=== PATIENT | female | born 1995 | race Caucasian/White ===

== ENCOUNTER 2018-12-29 06:00 | Emergency (ER) | payer SELFPAY ==
[~2018-12-29] VITALS: Ht 165.1 cm; Wt 56.1 kg
[2018-12-29 06:06] VITALS: BP 109/56; PULSE 89; RESP 18; Ht 165.1 cm; Wt 56.1 kg
[2018-12-29] MEDS ORDERED: CIPR500T4 PO (07:48)
--- NOTE | 2018-12-29 09:25 | ERD ---
ER Documentation Chief Complaint Chief Complaint DYSURIA, LOWER BACK PAIN X'S 2 DAYS HPI 23-year-old female presenting with dysuria times 2 days. Patient states she developed hematuria this morning. No fevers. She said her last UTI was last year. Has not use any medications for symptoms. Describes urinary frequency with burning. Patient has some mild suprapubic tenderness. Denies lateralized pain. LNMP 1 week ago. Denies medical problems. NKDA. Surgical history of C- section. Social history smokes 1 cigarette a day. ROS All systems reviewed and are negative except as per history of present illness. Medications Home Meds Active Scripts Ciprofloxacin Hcl* (Ciprofloxacin Hcl*) 500 Mg Tablet, 500 MG PO BID for 7 Days, TAB Prov:MEGAN ARTHUR PA-C 12/29/18 PMhx/Soc Medical and Surgical Hx: pt denies Medical Hx, pt denies Surgical Hx Hx Alcohol Use: No Hx Substance Use: No Hx Tobacco Use: Yes Smoking Status: Current some day smoker FmHx Family History: No diabetes, No coronary disease, No other Physical Exam Vitals Vital Signs Date Temp Pulse Resp B/P (MAP) Pulse Ox O2 O2 Flow FiO2 Time Delivery Rate 12/29/18 97.0 89 18 109/56 100 06:06 (73) Physical Exam GENERAL: The patient is well-appearing, well-nourished, in no acute distress CHEST: Clear to auscultation bilaterally. There are no rales, wheezes or rhonchi. HEART: Regular rate and rhythm. No murmurs, clicks, rubs or gallops. ABDOMEN:Soft, nontender and nondistended. Good bowel sounds. No rebound or guarding. No gross peritonitis. No gross organomegaly or masses. Mild tenderness to palpation over the pubic region. BACK: No midline or flank tenderness. Results 24 hrs Laboratory Tests Test 12/29/18 07:36 12/29/18 07:37 Bedside Urine pH (LAB) 6.0 Bedside Urine Protein (LAB) 3+ Bedside Urine Glucose (UA) Negative Bedside Urine Ketones (LAB) Negative Bedside Urine Blood 3+ Bedside Urine Nitrite (LAB) Negative Bedside Urine Leukocyte Esterase (L 1+ POC Beta HCG, Qualitative NEGATIVE Procedures/MDM ER course: Urinalysis shows positive findings of urinary tract infection. MDM: 23-year-old female presenting with dysuria. I have low suspicion for pyelonephritis as patient's exam is non-concerning. I have low suspicion for pelvic emergency or acute abdominal emergency. Exam is non-concerning. Patient has findings consistent with urinary tract infection she will be discharged with supportive medications. Patient is told if symptoms change or worsen to return immediately to the ER. All questions answered at discharge Departure Diagnosis: Primary Impression: UTI (urinary tract infection) Condition: Stable Patient Instructions: Understanding Urinary Tract Infections (UTIs) Referrals: [facility] YOU HAVE RECEIVED A MEDICAL SCREENING EXAM AND THE RESULTS INDICATE THAT YOU DO NOT HAVE A CONDITION THAT REQUIRES URGENT TREATMENT IN THE EMERGENCY DEPARTMENT. FURTHER EVALUATION AND TREATMENT OF YOUR CONDITION CAN WAIT UNTIL YOU ARE SEEN IN YOUR DOCTORS OFFICE WITHIN THE NEXT 1-2 DAYS. IT IS YOUR RESPONSIBILITY TO MAKE AN APPOINTMENT FOR FOLOW-UP CARE. IF YOU HAVE A PRIMARY DOCTOR --you should call your primary doctor and schedule an appointment IF YOU DO NOT HAVE A PRIMARY DOCTOR YOU CAN CALL OUR PHYSICIAN REFERRAL HOTLINE AT IF YOU CAN NOT AFFORD TO SEE A PHYSICIAN YOU CAN CHOSE FROM THE FOLLOWING [facility] CLINICS [facility] [id number] [facility] [address] [facility] [facility] [address] [facility] [facility] [address] [facility] [address] [facility]. [address] Additional Instructions: FOLLOW UP WITH YOUR PRIMARY CARE PHYSICIAN TOMORROW.Return to this facility if you are not improving as expected. MEGAN ARTHUR PA-C Dec 29, 2018 09:25
== END 2018-12-29 08:36 | disposition home or self-care (01) ==
LOC: FTE 06:00
DX: N39.0 Urinary tract infection, site not specified (principal); F17.210 Nicotine dependence, cigarettes, uncomplicated
CPT/HCPCS: 81003; 81025; 99283